=== PATIENT | female | born 1975 | race Two or more races ===

== ENCOUNTER 2023-10-27 14:21 | Inpatient (IN) | payer MEDICAID ==
[~2023-10-27] VITALS: Ht 154.9 cm; Wt 79.3 kg
[2023-10-27 16:00] VITALS: BP 137/83; TEMP 98.2; O2SAT 97
[2023-10-27] MEDS ORDERED: PRED20TA PO (16:22)
[2023-10-27] MEDS ORDERED: ONDANSETRON HCL/PF 4 MG/2 ML VIAL IVP PRN (17:00)
[2023-10-27] MEDS ORDERED: MAG HYDROX/AL HYDROX/SIMETH 30 ML UDC PO PRN (17:00)
[2023-10-27] MEDS ORDERED: DEXTROSE 50%-WATER 50 ML DISP.SYRIN IV PRN (17:00)
[2023-10-27] MEDS ORDERED: Z GUARD REMEDY 4 OZ OINT TP PRN (17:00)
[2023-10-27] MEDS ORDERED: MAGNESIUM HYDROXIDE 30 ML UDC PO PRN (17:00)
[2023-10-27] MEDS: BLOOD SUGAR DIAGNOSTIC 1 EACH STRIP IN SCH (17:28)
[2023-10-27] MEDS: ACETAMINOPHEN 325 MG TABLET PO PRN (17:47)
[2023-10-27] MEDS: INSULIN REGULAR, HUMAN 100 UNIT/ML 3 ML VIAL SQ PRN (19:25)
[2023-10-27 20:00] VITALS: BP 119/64; TEMP 97.8; O2SAT 98
[2023-10-27] MEDS: methylPREDNISolone SOD SUCC 40 MG/ML VIAL IV SCH (20:08)
[2023-10-27 20:22] VITALS: BP 119/64; TEMP 97.8; O2SAT 98
[2023-10-27] MEDS ORDERED: methylPREDNISolone SOD SUCC 125 MG/2ML VIAL IV SCH (21:00)
[2023-10-27 21:46] VITALS: O2SAT 99
[2023-10-27] MEDS: ALBUTEROL FS 2.5 MG/3 ML VIAL.NEB NEB PRN (21:46)
[2023-10-27 21:52] VITALS: O2SAT 98
[2023-10-27 21:56] VITALS: O2SAT 100
[2023-10-27] MEDS ORDERED: ZOLPIDEM TARTRATE 5 MG TABLET PO PRN (22:00)
[2023-10-28] VITALS (7 sets, daily range): BP systolic 110–135; BP diastolic 67–81; TEMP 94.9–98.1; O2SAT 93–100
[2023-10-28 07:43] LABS: BASOPHILS % (AUTO) 0.1 % (0.0-2.0); HEMATOCRIT 38 % (33-45); HEMOGLOBIN 12.4 g/dL (11.5-14.8); LYMPHOCYTES # (AUTO) 1.1 K/uL (0.8-4.8); LYMPHOCYTES % (AUTO) 9.9 % (20.0-44.0); MEAN CORPUSCULAR HEMOGLOBIN 29 PG (26.0-33.0); MEAN CORPUSCULAR HGB CONC 33 g/dl (31.0-36.0); MEAN CORPUSCULAR VOLUME 90 fL (82-100); MONOCYTES # (AUTO) 0.5 K/uL (0.1-1.30); MONOCYTES % (AUTO) 4.3 % (2.0-12.0); NEUTROPHILS # (AUTO) 9.5 K/uL (1.8-8.9); NEUTROPHILS % (AUTO) 85.7 % (43.0-81.0); PLATELET COUNT (AUTO) 159 K/uL (150-450); RED BLOOD CELL COUNT(AUTO) 4.23 MIL/uL (4.0-5.2); RED CELL DISTRIBUTION WIDTH 14.4 % (11.5-15.0); WHITE BLOOD COUNT (AUTO) 11.1 K/uL (4.3-11.0)
[2023-10-28 08:03] LABS: CALCIUM, SERUM 8.8 mg/dL (8.5-10.1); CREATININE 0.5 mg/dL (0.6-1.3); MAGNESIUM 2.3 mg/dL (1.8-2.4); POTASSIUM 3.9 mmol/L (3.5-5.1)
[2023-10-28] MEDS: PANTOPRAZOLE 40 MG VIAL IV SCH (08:55)
[2023-10-28] MEDS: OSELTAMIVIR PHOSPHATE 75 MG CAPSULE PO SCH (08:55)
[2023-10-28] MEDS: ENOXAPARIN SODIUM 40 MG/0.4 ML DISP.SYRIN SQ SCH (08:58)
[2023-10-28] MEDS: ALBUTEROL FS 2.5 MG/3 ML VIAL.NEB NEB SCH (14:00)
[2023-10-28] MEDS ORDERED: HOME MED MISCELLANEOUS XX SCH (18:00)
[2023-10-28] MEDS: METFORMIN 500 MG TABLET PO SCH (18:03)
[2023-10-29 07:46] VITALS: O2SAT 97
[2023-10-29 07:59] VITALS: O2SAT 99
[2023-10-29] MEDS: PANTOPRAZOLE 40 MG TABLET.DR PO SCH (08:14)
[2023-10-29] MEDS: DULERA INH SCH (08:16)
[2023-10-29] MEDS ORDERED: METF-440 PO (12:36)
[2023-10-29] MEDS ORDERED: OSEL75CA PO (12:36)
[2023-10-29] MEDS ORDERED: GUAI600T53 PO (12:36)
[2023-10-29] MEDS ORDERED: METH4TAB17 PO (12:36)
[2023-10-29 12:50] VITALS: O2SAT 96
[2023-10-29 13:02] VITALS: O2SAT 99
[2023-10-29 16:40] LABS: PREGNANCY TEST URINE QUAL NEGATIVE (NEGATIVE)
== END 2023-10-29 15:30 | disposition home or self-care (01) | DRG 113 ==
LOC: MED 15:35
PROVIDERS: ADMIT Nurse Practitioner Acute Care; ATTEND Nurse Practitioner Acute Care
DX: J10.1 Influenza due to other identified influenza virus with other respiratory manifestations (principal); J96.01 Acute respiratory failure with hypoxia; J45.901 Unspecified asthma with (acute) exacerbation; E66.9 Obesity, unspecified; R73.03 Prediabetes; Z68.33 Body mass index [BMI] 33.0-33.9, adult
CPT/HCPCS: 36415; 80048-TC; 82962-TC; 83735-TC; 84100-TC; 84703-TC; 85025-TC; 94760-TC; 94799-TC; G0378; J1650; J1815; J2470; J2919